=== PATIENT | male | born 1940 | race African-American/Black ===

== ENCOUNTER 2020-02-29 16:30 | Inpatient (IN) | payer MEDICARE ==
[~2020-02-29] VITALS: Ht 184.2 cm; Wt 69.9 kg
[~2020-02-29 16:30] MED LIST: CIPR-263 PO
[2020-02-29] MEDS ORDERED: ADENOSINE 3 MG/ML 2ML VIAL IV ONE ×2 (17:00)
[2020-02-29] MEDS ORDERED: DILTIAZEM HCL 5MG/ML 5ML VIAL IV ONE (17:30)
[2020-02-29] MEDS ORDERED: AMIODARONE HCL 900 MG in DEXT 5% WATER 482 ML IV STA (17:43)
[2020-02-29 17:51] LABS: BASOPHILS % 0.1 % (0.0-2.0); HEMATOCRIT. 54.6 % (42.0-52.0); HEMOGLOBIN. 17.9 g/dL (14.0-18.0); LYMPHOCYTES % 12.4 % (20.0-50.0); MEAN CORPUSCULAR HEMOGLOBIN 27.7 pg (28.0-32.0); MEAN CORPUSCULAR VOLUME 84.7 fL (80.0-94.0); MONOCYTES % 8.2 % (2.0-8.0); NEUTROPHILS % 79.3 % (40.0-76.0); PLATELET 122 x1000/uL (130-400); RED BLOOD CELL COUNT 6.45 mill/uL (4.7-6.1); RED CELL DISTRIBUTION WIDTH 14.5 % (11.6-14.6)
[2020-02-29 17:59] LABS: CHLORIDE 99 mEq/L (98-107)
[2020-02-29] MEDS ORDERED: SODIUM CHLORIDE 0.9% 500 ML IV ONE (19:15)
[2020-02-29] MEDS ORDERED: MORPHINE SULFATE 2 MG/ML CPJ (NOT FOR IM USE) IV PRN (22:15)
[2020-02-29] MEDS ORDERED: HYDROCODONE/ACETAMINOPHEN 5/325MG TABLET PO PRN (23:45)
[2020-03-01] VITALS (13 sets, daily range): BP systolic 117–144; BP diastolic 72–91
[2020-03-01] MEDS ORDERED: IOHEXOL-300 100 ML BOTTLE ONE (01:41)
[2020-03-01 09:58] LABS: T4 FREE 1.29 ng/dL (0.76-1.46)
[2020-03-01] MEDS ORDERED: POTASSIUM CHLORIDE INJ 40 MEQ in DEXT 5% WATER 250 ML IV ONE (11:00)
[2020-03-01] MEDS ORDERED: DEXT 5%/0.9% NACL 1,000 ML IV SCH (11:00)
[2020-03-01] MEDS ORDERED: PANTOPRAZOLE SODIUM 40 MG/VIAL IV NR (11:00)
[2020-03-01 11:28] LABS: BG BASE EXCESS -2.2 mmol/L (-2.0-2.0); BG CARBOXYHEMOGLOBIN 0.4 % (0.5-1.5); BG DEOXYHEMOGLOBIN 0.6 % (0.0-5.0); BG FRACTION INSPIRED OXYGEN 40; BG HCO3 ACT 21.9 mmol/L (22.0-26.0); BG METHEMOGLOBIN 0.6 % (0.0-1.5); BG OXYGEN SATURATION 99.4 % (92.0-98.5); BG OXYHEMOGLOBIN 98.4 % (94.0-97.0); BG PCO2 36.3 mmHg (35.0-45.0); BG PH 7.399 (7.350-7.450); BG PO2 187.2 mmHg (75.0-100.0); BG SAMPLE SITE RIGHT RADIAL; BG TOTAL HEMOGLOBIN 18.5 g/dL (12.0-18.0); BG VENT MODE NASAL CANNULA
[2020-03-01] MEDS ORDERED: MIDAZOLAM HCL 2 MG/2 ML VIAL ONE (11:35)
[2020-03-01] MEDS ORDERED: FENTANYL CITRATE/PF 50MCG/ML 2ML VIAL ONE (11:35)
[2020-03-01] MEDS ORDERED: PROPOFOL 200MG/20ML VIAL IV ONE (11:36)
[2020-03-01] MEDS ORDERED: SUCCINYLCHOLINE CHLORIDE 200MG/10ML IV ONE (11:39)
[2020-03-01] MEDS ORDERED: ROCURONIUM BROMIDE 10MG/ML VIAL 5ML IV ONE (11:40)
[2020-03-01] MEDS ORDERED: LIDOCAINE HCL/PF 1% 10 MG/ML 5ML VIAL ONE (11:43)
[2020-03-01] MEDS ORDERED: BUPIVACAINE HCL 0.5% (5MG/ML) 50ML ONE (11:45)
[2020-03-01] MEDS ORDERED: BACITRACIN 50,000 UNITS/VIAL ONE (11:45)
[2020-03-01] MEDS ORDERED: METHYLENE BLUE 50 MG/10 ML AMP IV ONE (11:45)
[2020-03-01] MEDS ORDERED: PHENYLEPHRINE HCL 10 MG/ML 1ML (IV VIAL) IV ONE (11:46)
[2020-03-01] MEDS ORDERED: ALBUMIN HUMAN 12.5G/250ML (5%) IV ONE (11:51)
[2020-03-01] MEDS ORDERED: PIPERACILLIN/TAZOBACTAM 2.25 G in DEXTROSE 5% WATER 50 ML IV SCH (12:00)
[2020-03-01] MEDS ORDERED: VANCOMYCIN 1 G PREMIX 200 ML IV SCH (12:00)
[2020-03-01] MEDS ORDERED: ONDANSETRON HCL 4MG/2ML INJ ONE (13:03)
[2020-03-01] MEDS ORDERED: ONDANSETRON HCL 4MG/2ML INJ IV PRN (13:15)
[2020-03-01] MEDS ORDERED: HYDRALAZINE 20MG/ML VIAL ONE (13:21)
[2020-03-01] MEDS ORDERED: ESMOLOL HCL 10MG/ML 10ML VIAL IV ONE (13:59)
[2020-03-01] MEDS ORDERED: FLUMAZENIL 0.1 MG/ML 5ML VIAL IV ONE (14:07)
[2020-03-01] MEDS ORDERED: GLYCOPYRROLATE 0.2 MG/ML 2ML VIAL ONE ×2 (14:08→14:12)
[2020-03-01] MEDS ORDERED: NEOSTIGMINE METHYLSULFATE 1MG/ML 10 ML VIAL ONE (14:09)
[2020-03-01] MEDS ORDERED: HEPARIN 1000 UNITS/ML 10ML ONE (14:12)
[2020-03-01] MEDS ORDERED: LABETALOL HCL 5MG/ML VIAL 20ML IV ONE (14:21)
[2020-03-01] MEDS ORDERED: ACETAMINOPHEN 650MG SUPP PR PRN (15:00)
[2020-03-01] MEDS ORDERED: HYDRALAZINE 20MG/ML VIAL IV PRN (15:00)
[2020-03-01] MEDS ORDERED: IPRATROPIUM/ALBUTEROL 0.5-3(2.5)MG/3ML NEB HHN PRN (15:00)
[2020-03-01 17:03] LABS: CHLORIDE 107 mEq/L (98-107)
[2020-03-01 17:05] LABS: INR 1.7; PROTHROMBIN TIME 17.6 sec (9.6-11.0)
[2020-03-01 17:07] LABS: HEMATOCRIT. 51.2 % (42.0-52.0); HEMOGLOBIN. 16.7 g/dL (14.0-18.0); MEAN CORPUSCULAR HEMOGLOBIN 27.6 pg (28.0-32.0); MEAN CORPUSCULAR VOLUME 84.6 fL (80.0-94.0); MEAN PLATELET VOLUME 9.3 fl (7.4-10.4); PLATELET 90 x1000/uL (130-400); RED BLOOD CELL COUNT 6.06 mill/uL (4.7-6.1); RED CELL DISTRIBUTION WIDTH 14.4 % (11.6-14.6)
[2020-03-01 17:15] LABS: CREATINE KINASE MB FRACTION 3.9 ng/mL (0.5-3.6)
[2020-03-01] MEDS: MORPHINE SULFATE 2 MG/ML CPJ (NOT FOR IM USE) IV PRN (17:18)
[2020-03-01] MEDS: DEXT 5%/0.45% NACL KCL 20MEQ/L 1,000 ML IV SCH (17:18)
[2020-03-01 18:04] LABS: PLATELET ESTIMATE DECREASED
[2020-03-01] MEDS: MORPHINE SULFATE 4 MG/ML CPJ (NOT FOR IM USE) IV PRN (20:39)
[2020-03-01 23:31] LABS: CREATINE KINASE MB FRACTION 3.7 ng/mL (0.5-3.6)
[2020-03-02] VITALS (17 sets, daily range): BP systolic 104–155; BP diastolic 39–91
[2020-03-02 02:12] LABS: CLARITY URINE CLEAR (CLEAR); COLOR URINE YELLOW (YELLOW); KETONES URINE NEGATIVE (NEGATIVE); LEUKOCYTE ESTERASE URINE NEGATIVE (NEGATIVE); NITRITE URINE NEGATIVE (NEGATIVE); OCCULT BLOOD URINE 2+ (NEGATIVE); PH URINE 5.5 (4.5-8.0); PROTEIN URINE TRACE (NEGATIVE); SPECIFIC GRAVITY URINE 1.033 (1.005-1.030); UROBILINOGEN URINE 0.2 E.U./dL (0.2-1.0)
[2020-03-02] MEDS: DEXT 5%/0.45% NACL KCL 20MEQ/L 1,000 ML IV SCH ×2 (02:19→10:00)
[2020-03-02] MEDS: MORPHINE SULFATE 4 MG/ML CPJ (NOT FOR IM USE) IV PRN (02:27)
[2020-03-02] MEDS ORDERED: PIPERACILLIN/TAZOBACTAM 2.25 G in DEXTROSE 5% WATER 50 ML IV SCH (03:00)
[2020-03-02 05:59] LABS: HEMATOCRIT. 47.9 % (42.0-52.0); HEMOGLOBIN. 15.6 g/dL (14.0-18.0); MEAN CORPUSCULAR HEMOGLOBIN 27.6 pg (28.0-32.0); MEAN PLATELET VOLUME 9.4 fl (7.4-10.4); PLATELET 89 x1000/uL (130-400); RED BLOOD CELL COUNT 5.64 mill/uL (4.7-6.1); RED CELL DISTRIBUTION WIDTH 14.7 % (11.6-14.6)
[2020-03-02 06:06] LABS: CHLORIDE 108 mEq/L (98-107)
[2020-03-02 06:18] LABS: CREATINE KINASE 340 IU/L (39-308)
[2020-03-02 06:21] LABS: CREATINE KINASE MB FRACTION 2.5 ng/mL (0.5-3.6)
[2020-03-02] MEDS: FAMOTIDINE 20MG/2ML VIAL IV SCH (09:28)
[2020-03-02] MEDS: PIPERACILLIN/TAZOBACTAM 3.375 G in DEXT 5% WATER 100 ML IV SCH ×3 (11:26→21:29)
[2020-03-02] MEDS ORDERED: VANCOMYCIN 750 MG PREMIX 150 ML IV SCH (12:00)
[2020-03-02 12:48] LABS: PLATELET ESTIMATE DECREASED
[2020-03-02] MEDS: SODIUM CHLORIDE 0.9% 1,000 ML IV SCH (13:16)
[2020-03-02] MEDS: VANCOMYCIN 750 MG PREMIX 150 ML IV SCH ×2 (13:17→23:43)
[2020-03-03] VITALS: BP 139/91
[2020-03-03] MEDS: SODIUM CHLORIDE 0.9% 1,000 ML IV SCH ×2 (02:27→16:36)
[2020-03-03] MEDS: PIPERACILLIN/TAZOBACTAM 3.375 G in DEXT 5% WATER 100 ML IV SCH ×4 (02:32→21:24)
[2020-03-03] MEDS: MORPHINE SULFATE 4 MG/ML CPJ (NOT FOR IM USE) IV PRN (02:39)
[2020-03-03 04:00] VITALS: BP 125/83
[2020-03-03 07:46] LABS: BASOPHILS % 0.1 % (0.0-2.0); HEMATOCRIT. 41.5 % (42.0-52.0); HEMOGLOBIN. 13.6 g/dL (14.0-18.0); LYMPHOCYTES % 9.8 % (20.0-50.0); MEAN CORPUSCULAR HEMOGLOBIN 27.8 pg (28.0-32.0); MEAN CORPUSCULAR VOLUME 84.9 fL (80.0-94.0); MEAN PLATELET VOLUME 9.6 fl (7.4-10.4); MONOCYTES % 6.4 % (2.0-8.0); NEUTROPHILS % 83.7 % (40.0-76.0); PLATELET 102 x1000/uL (130-400); RED BLOOD CELL COUNT 4.88 mill/uL (4.7-6.1); RED CELL DISTRIBUTION WIDTH 14.4 % (11.6-14.6)
[2020-03-03 08:00] VITALS: BP 140/94
[2020-03-03 08:34] LABS: CHLORIDE 109 mEq/L (98-107)
[2020-03-03] MEDS: FAMOTIDINE 20MG/2ML VIAL IV SCH (08:59)
[2020-03-03 11:54] VITALS: BP 123/80
[2020-03-03] MEDS: VANCOMYCIN 1 G PREMIX 200 ML IV SCH (13:11)
[2020-03-03 16:00] VITALS: BP 123/88
[2020-03-03 20:00] VITALS: BP 131/89
[2020-03-04] VITALS: BP 132/84
[2020-03-04] MEDS: VANCOMYCIN 1 G PREMIX 200 ML IV SCH ×2 (00:19→12:08)
[2020-03-04] MEDS: PIPERACILLIN/TAZOBACTAM 3.375 G in DEXT 5% WATER 100 ML IV SCH ×4 (03:29→21:43)
[2020-03-04 04:00] VITALS: BP 131/80
[2020-03-04] MEDS: SODIUM CHLORIDE 0.9% 1,000 ML IV SCH (06:15)
[2020-03-04 08:00] VITALS: BP 98/60
[2020-03-04] MEDS: FAMOTIDINE 20MG/2ML VIAL IV SCH (08:39)
[2020-03-04] MEDS: MORPHINE SULFATE 2 MG/ML CPJ (NOT FOR IM USE) IV PRN (08:39)
[2020-03-04 12:00] VITALS: BP_SYST 104; BP_SYST 133; BP_DIAS 65; BP_DIAS 96
[2020-03-04] MEDS: DEXT 5%/0.45% NACL KCL 10MEQ/L 1,000 ML IV SCH ×2 (12:06→18:32)
[2020-03-04 16:00] VITALS: BP 133/96
[2020-03-04 20:00] VITALS: BP 138/93
[2020-03-05] VITALS: BP 136/90
[2020-03-05] MEDS: VANCOMYCIN 1 G PREMIX 200 ML IV SCH (01:54)
[2020-03-05] MEDS: MORPHINE SULFATE 4 MG/ML CPJ (NOT FOR IM USE) IV PRN (03:19)
[2020-03-05] MEDS: PIPERACILLIN/TAZOBACTAM 3.375 G in DEXT 5% WATER 100 ML IV SCH ×4 (03:19→21:42)
[2020-03-05] MEDS: DEXT 5%/0.45% NACL KCL 10MEQ/L 1,000 ML IV SCH ×3 (03:19→18:32)
[2020-03-05 04:00] VITALS: BP 149/91
[2020-03-05] MEDS: HYDROCODONE/ACETAMINOPHEN 5/325MG TABLET PO PRN ×2 (06:16→18:58)
[2020-03-05 06:23] LABS: CHLORIDE 106 mEq/L (98-107)
[2020-03-05 08:00] VITALS: BP 123/76
[2020-03-05] MEDS: FAMOTIDINE 20MG/2ML VIAL IV SCH (08:48)
[2020-03-05 12:00] VITALS: BP 156/95
[2020-03-05] MEDS ORDERED: POTASSIUM CHLORIDE 20MEQ TABLET SR PO NR (13:00)
[2020-03-05 16:00] VITALS: BP 143/81
[2020-03-05 20:00] VITALS: BP 140/99
[2020-03-06] MEDS: VANCOMYCIN 1 G PREMIX 200 ML IV SCH ×2 (01:09→21:14)
[2020-03-06] MEDS: PIPERACILLIN/TAZOBACTAM 3.375 G in DEXT 5% WATER 100 ML IV SCH ×2 (03:35→09:07)
[2020-03-06] MEDS: DEXT 5%/0.45% NACL KCL 10MEQ/L 1,000 ML IV SCH ×3 (03:36→19:04)
[2020-03-06] MEDS: HYDROCODONE/ACETAMINOPHEN 5/325MG TABLET PO PRN ×2 (03:53→10:23)
[2020-03-06 08:00] VITALS: BP 112/76
[2020-03-06] MEDS: FAMOTIDINE 20MG/2ML VIAL IV SCH (09:07)
[2020-03-06 12:00] VITALS: BP 100/66
[2020-03-06 15:15] LABS: BG BASE EXCESS 1.5 mmol/L (-2.0-2.0); BG CARBOXYHEMOGLOBIN 1.1 % (0.5-1.5); BG DEOXYHEMOGLOBIN 1.8 % (0.0-5.0); BG FRACTION INSPIRED OXYGEN 28; BG HCO3 ACT 23.7 mmol/L (22.0-26.0); BG METHEMOGLOBIN 0.2 % (0.0-1.5); BG OXYGEN SATURATION 98.2 % (92.0-98.5); BG OXYHEMOGLOBIN 96.9 % (94.0-97.0); BG PH 7.502 (7.350-7.450); BG PO2 94.9 mmHg (75.0-100.0); BG SAMPLE SITE RIGHT RADIAL; BG VENT MODE NASAL CANNULA
[2020-03-06] MEDS ORDERED: HYDRALAZINE 10 MG in SODIUM CHLORIDE 0.9% 50 ML IV PRN (15:45)
[2020-03-06 16:00] VITALS: BP 106/78
[2020-03-06 20:00] VITALS: BP 110/64
[2020-03-07] VITALS (12 sets, daily range): BP systolic 110–148; BP diastolic 63–99
[2020-03-07] MEDS ORDERED: DILTIAZEM HCL 5MG/ML 5ML VIAL IV SCH (01:00)
[2020-03-07] MEDS ORDERED: DILTIAZEM HCL 125 MG in DEXT 5% WATER 100 ML IV PRN (02:00)
[2020-03-07] MEDS ORDERED: DIGOXIN 500MCG/2ML AMP IV SCH (03:15)
[2020-03-07 06:12] LABS: BASOPHILS % 0.4 % (0.0-2.0); EOSINOPHILS % 2.7 % (0.0-5.0); HEMATOCRIT. 40.7 % (42.0-52.0); HEMOGLOBIN. 13.8 g/dL (14.0-18.0); LYMPHOCYTES % 23.2 % (20.0-50.0); MEAN CORPUSCULAR HEMOGLOBIN 28.3 pg (28.0-32.0); MEAN CORPUSCULAR VOLUME 83.4 fL (80.0-94.0); MEAN PLATELET VOLUME 8.3 fl (7.4-10.4); MONOCYTES % 12.1 % (2.0-8.0); NEUTROPHILS % 61.6 % (40.0-76.0); PLATELET 198 x1000/uL (130-400); RED BLOOD CELL COUNT 4.88 mill/uL (4.7-6.1); RED CELL DISTRIBUTION WIDTH 14.1 % (11.6-14.6)
[2020-03-07 06:31] LABS: CHLORIDE 106 mEq/L (98-107)
[2020-03-07] MEDS ORDERED: LIDOCAINE HCL 1% 20ML VIAL (Pyxis) INJ ONE (07:38)
[2020-03-07] MEDS ORDERED: ENOXAPARIN 40MG/0.4ML SYR SUBCUT SCH (09:00)
[2020-03-07 09:08] LABS: CREATINE KINASE MB FRACTION 2.7 ng/mL (0.5-3.6)
[2020-03-07] MEDS ORDERED: HYDRALAZINE 20MG/ML VIAL IV PRN (10:15)
[2020-03-07] MEDS: AMIODARONE HCL 900 MG in DEXT 5% WATER 482 ML IV SCH (11:26)
[2020-03-07] MEDS: FAMOTIDINE 20MG/2ML VIAL IV SCH (11:44)
[2020-03-07] MEDS: HYDROCODONE/ACETAMINOPHEN 5/325MG TABLET PO PRN (12:47)
[2020-03-07] MEDS ORDERED: ENOXAPARIN 80MG/0.8ML SYR SUBCUT SCH ×2 (14:30→23:00)
[2020-03-07] MEDS ORDERED: BISACODYL 10MG SUPP PR PRN (17:15)
[2020-03-07] MEDS ORDERED: LACTULOSE 20G/30ML UDC PO PRN (17:15)
[2020-03-07] MEDS: DEXT 5%/0.45% NACL KCL 10MEQ/L 1,000 ML IV SCH (18:36)
[2020-03-08] VITALS (19 sets, daily range): BP systolic 128–156; BP diastolic 58–114
[2020-03-08] MEDS: AMIODARONE HCL 900 MG in DEXT 5% WATER 482 ML IV SCH (03:23)
[2020-03-08 07:30] LABS: BASOPHILS % 0.4 % (0.0-2.0); EOSINOPHILS % 2.5 % (0.0-5.0); HEMATOCRIT. 40.2 % (42.0-52.0); HEMOGLOBIN. 13.5 g/dL (14.0-18.0); LYMPHOCYTES % 17.2 % (20.0-50.0); MEAN CORPUSCULAR HEMOGLOBIN 28.4 pg (28.0-32.0); MEAN CORPUSCULAR VOLUME 84.7 fL (80.0-94.0); MEAN PLATELET VOLUME 8.3 fl (7.4-10.4); MONOCYTES % 11.4 % (2.0-8.0); NEUTROPHILS % 68.5 % (40.0-76.0); PLATELET 230 x1000/uL (130-400); RED BLOOD CELL COUNT 4.74 mill/uL (4.7-6.1)
[2020-03-08 07:40] LABS: CHLORIDE 107 mEq/L (98-107)
[2020-03-08] MEDS: DEXT 5%/0.45% NACL KCL 10MEQ/L 1,000 ML IV SCH (08:37)
[2020-03-08] MEDS: FAMOTIDINE 20MG/2ML VIAL IV SCH (08:37)
[2020-03-08] MEDS: APIXABAN 5 MG TABLET PO SCH ×2 (12:58→17:40)
[2020-03-08] MEDS ORDERED: AMI2 PO (17:23)
[2020-03-08] MEDS ORDERED: HYDR-4001 MT (17:23)
[2020-03-08] MEDS ORDERED: APIX5TAB MT (17:23)
[2020-03-08] MEDS ORDERED: DOCU-138 MT (17:23)
[2020-03-08] MEDS ORDERED: FAMO-135 PO (17:23)
[2020-03-08] MEDS ORDERED: LACTULOSE 20G/30ML UDC PO PRN (17:30)
[2020-03-08] MEDS ORDERED: NA PHOS,M-B/NA PHOS,DI-BA ENEMA 118ML PR PRN (17:30)
[2020-03-08] MEDS: DOCUSATE SODIUM 100MG CAPSULE PO SCH (17:39)
[2020-03-08] MEDS: AMIODARONE HCL 200 MG TABLET PO SCH (21:32)
[2020-03-09] VITALS (13 sets, daily range): BP systolic 126–152; BP diastolic 80–121
[2020-03-09 06:24] LABS: HEMATOCRIT 39.5 % (42.0-52.0); HEMOGLOBIN 13.2 g/dL (14.0-18.0); MEAN CORPUSCULAR VOLUME 83.8 fL (80.0-94.0); PLATELET 247 x1000/uL (130-400); RED BLOOD CELL COUNT 4.71 mill/uL (4.7-6.1); RED CELL DISTRIBUTION WIDTH 14.3 % (11.6-14.6)
[2020-03-09 06:31] LABS: CHLORIDE 108 mEq/L (98-107)
[2020-03-09] MEDS: DOCUSATE SODIUM 100MG CAPSULE PO SCH ×2 (09:00→17:00)
[2020-03-09] MEDS: APIXABAN 5 MG TABLET PO SCH ×2 (09:45→18:09)
[2020-03-09] MEDS: AMIODARONE HCL 200 MG TABLET PO SCH ×2 (09:46→20:20)
[2020-03-09] MEDS: FAMOTIDINE 20MG/2ML VIAL IV SCH (09:46)
[2020-03-09] MEDS ORDERED: METOPROLOL TARTRATE 25MG TABLET PO NR (12:45)
[2020-03-09] MEDS ORDERED: METOPROLOL TARTRATE 25MG TABLET PO SCH ×2 (13:00→21:00)
[2020-03-09] MEDS ORDERED: IOHEXOL-350 100 ML BOTTLE ONE (13:18)
[2020-03-09] MEDS: LEVOFLOXACIN 500MG PREMIX 100 ML IV SCH (15:49)
[2020-03-09] MEDS: METOPROLOL TARTRATE 50MG TABLET PO SCH (20:21)
[2020-03-10] VITALS (10 sets, daily range): BP systolic 124–158; BP diastolic 67–111
[2020-03-10] MEDS: FAMOTIDINE 20MG/2ML VIAL IV SCH (11:03)
[2020-03-10] MEDS: APIXABAN 5 MG TABLET PO SCH ×2 (11:04→18:36)
[2020-03-10] MEDS: DOCUSATE SODIUM 100MG CAPSULE PO SCH ×2 (11:04→17:00)
[2020-03-10] MEDS: METOPROLOL TARTRATE 50MG TABLET PO SCH ×2 (11:04→20:49)
[2020-03-10] MEDS: AMIODARONE HCL 200 MG TABLET PO SCH ×2 (11:04→20:48)
[2020-03-10] MEDS ORDERED: MAGNESIUM 4 G PREMIX 100 ML IV NR (12:00)
[2020-03-10] MEDS: LEVOFLOXACIN 500MG PREMIX 100 ML IV SCH (15:26)
[2020-03-11] VITALS (11 sets, daily range): BP systolic 116–149; BP diastolic 76–94
[2020-03-11] MEDS: DOCUSATE SODIUM 100MG CAPSULE PO SCH ×2 (09:00→19:01)
[2020-03-11] MEDS: AMIODARONE HCL 200 MG TABLET PO SCH ×2 (09:07→21:17)
[2020-03-11] MEDS: METOPROLOL TARTRATE 50MG TABLET PO SCH ×2 (09:07→21:19)
[2020-03-11] MEDS: FAMOTIDINE 20MG/2ML VIAL IV SCH (09:07)
[2020-03-11] MEDS: APIXABAN 5 MG TABLET PO SCH ×2 (09:07→19:01)
[2020-03-11 11:45] LABS: BG BASE EXCESS -0.6 mmol/L (-2.0-2.0); BG CARBOXYHEMOGLOBIN 0.8 % (0.5-1.5); BG DEOXYHEMOGLOBIN 11.3 % (0.0-5.0); BG HCO3 ACT 22.8 mmol/L (22.0-26.0); BG METHEMOGLOBIN 0.3 % (0.0-1.5); BG OXYGEN SATURATION 88.6 % (92.0-98.5); BG OXYHEMOGLOBIN 87.6 % (94.0-97.0); BG PCO2 34.2 mmHg (35.0-45.0); BG PH 7.442 (7.350-7.450); BG PO2 50.6 mmHg (75.0-100.0); BG SAMPLE SITE RIGHT BRACHIAL; BG TOTAL HEMOGLOBIN 15.9 g/dL (12.0-18.0); BG VENT MODE ROOM AIR
[2020-03-11] MEDS: LEVOFLOXACIN 500MG PREMIX 100 ML IV SCH (14:47)
[2020-03-11] MEDS: ALPRAZOLAM 0.5 MG TABLET PO PRN (21:16)
[2020-03-12] VITALS (10 sets, daily range): BP systolic 114–141; BP diastolic 66–91
[2020-03-12 06:40] LABS: BASOPHILS % 0.8 % (0.0-2.0); EOSINOPHILS % 2.3 % (0.0-5.0); HEMATOCRIT. 40.3 % (42.0-52.0); HEMOGLOBIN. 13.2 g/dL (14.0-18.0); LYMPHOCYTES % 19.1 % (20.0-50.0); MEAN CORPUSCULAR VOLUME 85.4 fL (80.0-94.0); MEAN PLATELET VOLUME 8.4 fl (7.4-10.4); MONOCYTES % 8.1 % (2.0-8.0); NEUTROPHILS % 69.7 % (40.0-76.0); PLATELET 302 x1000/uL (130-400); RED BLOOD CELL COUNT 4.72 mill/uL (4.7-6.1); RED CELL DISTRIBUTION WIDTH 14.5 % (11.6-14.6)
[2020-03-12 06:58] LABS: CHLORIDE 107 mEq/L (98-107)
[2020-03-12] MEDS: FAMOTIDINE 20MG/2ML VIAL IV SCH (08:49)
[2020-03-12] MEDS: APIXABAN 5 MG TABLET PO SCH ×2 (08:50→17:11)
[2020-03-12] MEDS: METOPROLOL TARTRATE 50MG TABLET PO SCH ×2 (08:50→21:16)
[2020-03-12] MEDS: AMIODARONE HCL 200 MG TABLET PO SCH ×2 (08:50→21:15)
[2020-03-12] MEDS: DOCUSATE SODIUM 100MG CAPSULE PO SCH ×3 (08:50→17:11)
[2020-03-12] MEDS: LEVOFLOXACIN 500MG PREMIX 100 ML IV SCH (14:44)
[2020-03-12] MEDS ORDERED: ACETAMINOPHEN 325MG TABLET PO PRN (19:15)
[2020-03-12] MEDS: HYDROCODONE/ACETAMINOPHEN 5/325MG TABLET PO PRN (19:56)
[2020-03-12] MEDS: ALPRAZOLAM 0.5 MG TABLET PO PRN (21:15)
[2020-03-13] VITALS (12 sets, daily range): BP systolic 108–127; BP diastolic 65–81
[2020-03-13] MEDS: DOCUSATE SODIUM 100MG CAPSULE PO SCH ×2 (09:00→17:00)
[2020-03-13] MEDS: APIXABAN 5 MG TABLET PO SCH ×2 (09:50→17:50)
[2020-03-13] MEDS: FAMOTIDINE 20MG/2ML VIAL IV SCH (09:50)
[2020-03-13] MEDS: AMIODARONE HCL 200 MG TABLET PO SCH ×2 (09:50→21:26)
[2020-03-13] MEDS: HYDROCODONE/ACETAMINOPHEN 5/325MG TABLET PO PRN (14:32)
[2020-03-13] MEDS: LEVOFLOXACIN 500MG PREMIX 100 ML IV SCH (14:33)
[2020-03-13] MEDS: ALPRAZOLAM 0.5 MG TABLET PO PRN (21:25)
[2020-03-13] MEDS: METOPROLOL TARTRATE 25MG TABLET PO SCH (21:26)
[2020-03-14] VITALS (12 sets, daily range): BP systolic 115–128; BP diastolic 74–83
[2020-03-14] MEDS: DOCUSATE SODIUM 100MG CAPSULE PO SCH ×2 (08:48→16:38)
[2020-03-14] MEDS: METOPROLOL TARTRATE 25MG TABLET PO SCH ×2 (08:49→20:08)
[2020-03-14] MEDS: AMIODARONE HCL 200 MG TABLET PO SCH (09:15)
[2020-03-14] MEDS: APIXABAN 5 MG TABLET PO SCH ×2 (09:15→17:48)
[2020-03-14] MEDS: FAMOTIDINE 20MG/2ML VIAL IV SCH (09:15)
[2020-03-15] VITALS (11 sets, daily range): BP systolic 100–142; BP diastolic 62–80
[2020-03-15] MEDS: DOCUSATE SODIUM 100MG CAPSULE PO SCH ×2 (09:22→17:00)
[2020-03-15] MEDS: FAMOTIDINE 20MG/2ML VIAL IV SCH (09:22)
[2020-03-15] MEDS: APIXABAN 5 MG TABLET PO SCH ×2 (09:22→18:20)
[2020-03-15] MEDS: METOPROLOL TARTRATE 25MG TABLET PO SCH ×2 (09:23→20:52)
[2020-03-15] MEDS: AMIODARONE HCL 200 MG TABLET PO SCH (09:24)
[2020-03-15] MEDS: ALPRAZOLAM 0.5 MG TABLET PO PRN (20:53)
[2020-03-16 08:00] VITALS: BP 119/74
[2020-03-16] MEDS: DOCUSATE SODIUM 100MG CAPSULE PO SCH ×2 (09:54→17:00)
[2020-03-16] MEDS: AMIODARONE HCL 200 MG TABLET PO SCH (09:54)
[2020-03-16] MEDS: FAMOTIDINE 20MG/2ML VIAL IV SCH (09:55)
[2020-03-16] MEDS: METOPROLOL TARTRATE 25MG TABLET PO SCH ×2 (09:55→20:40)
[2020-03-16] MEDS: APIXABAN 5 MG TABLET PO SCH ×2 (09:55→18:15)
[2020-03-16 10:00] VITALS: BP 113/77
[2020-03-16 12:00] VITALS: BP 106/75
[2020-03-16 16:00] VITALS: BP 102/61
[2020-03-16 20:00] VITALS: BP 110/71
[2020-03-17] VITALS: BP 105/65
[2020-03-17 04:00] VITALS: BP 105/66
[2020-03-17 08:00] VITALS: BP 100/61
[2020-03-17] MEDS ORDERED: ASCORBIC ACID 250 MG TABLET PO SCH (09:00)
[2020-03-17] MEDS ORDERED: ZINC SULFATE 220 MG ( 50 ) CAPSULE PO SCH (09:00)
[2020-03-17] MEDS: DOCUSATE SODIUM 100MG CAPSULE PO SCH ×2 (09:00→17:00)
[2020-03-17] MEDS: FAMOTIDINE 20MG/2ML VIAL IV SCH (09:19)
[2020-03-17] MEDS: METOPROLOL TARTRATE 25MG TABLET PO SCH ×2 (09:19→21:24)
[2020-03-17] MEDS: APIXABAN 5 MG TABLET PO SCH ×2 (09:19→17:07)
[2020-03-17] MEDS: AMIODARONE HCL 200 MG TABLET PO SCH (09:19)
[2020-03-17 20:00] VITALS: BP 102/69
[2020-03-17] MEDS: HYDROCODONE/ACETAMINOPHEN 5/325MG TABLET PO PRN (22:26)
[2020-03-18] VITALS: BP 110/69
[2020-03-18 04:00] VITALS: BP 116/68
[2020-03-18 08:00] VITALS: BP 113/72
[2020-03-18] MEDS: METOPROLOL TARTRATE 25MG TABLET PO SCH ×2 (09:00→21:29)
[2020-03-18] MEDS: DOCUSATE SODIUM 100MG CAPSULE PO SCH ×2 (09:00→17:00)
[2020-03-18] MEDS: AMIODARONE HCL 200 MG TABLET PO SCH (09:22)
[2020-03-18] MEDS: FAMOTIDINE 20MG/2ML VIAL IV SCH (09:22)
[2020-03-18] MEDS: APIXABAN 5 MG TABLET PO SCH ×2 (09:22→17:26)
[2020-03-18 12:00] VITALS: BP 112/69
[2020-03-18 16:00] VITALS: BP 106/67
[2020-03-18] MEDS ORDERED: AMIO100T4 PO (17:42)
[2020-03-18 20:00] VITALS: BP 114/67
[2020-03-18] MEDS: HYDROCODONE/ACETAMINOPHEN 5/325MG TABLET PO PRN (21:29)
[2020-03-19] VITALS: BP 118/74
[2020-03-19 04:00] VITALS: BP 114/71
[2020-03-19 08:00] VITALS: BP 112/70
[2020-03-19] MEDS: DOCUSATE SODIUM 100MG CAPSULE PO SCH ×2 (09:00→17:00)
[2020-03-19] MEDS: METOPROLOL TARTRATE 25MG TABLET PO SCH (09:00)
[2020-03-19] MEDS: APIXABAN 5 MG TABLET PO SCH ×2 (09:17→17:38)
[2020-03-19] MEDS: FAMOTIDINE 20MG/2ML VIAL IV SCH (09:17)
[2020-03-19] MEDS: AMIODARONE HCL 200 MG TABLET PO SCH (09:17)
[2020-03-19 12:00] VITALS: BP 110/71
[2020-03-19 16:00] VITALS: BP 147/94
[2020-03-19 20:00] VITALS: BP 141/84
[2020-03-20] VITALS: BP 137/81
[2020-03-20 04:00] VITALS: BP 131/84
[2020-03-20 07:14] LABS: CHLORIDE 103 mEq/L (98-107)
[2020-03-20 08:00] VITALS: BP 147/92
[2020-03-20] MEDS: APIXABAN 5 MG TABLET PO SCH ×2 (08:50→16:25)
[2020-03-20] MEDS: FAMOTIDINE 20MG/2ML VIAL IV SCH (08:51)
[2020-03-20] MEDS: METOPROLOL TARTRATE 25MG TABLET PO SCH (08:51)
[2020-03-20] MEDS: AMIODARONE HCL 200 MG TABLET PO SCH (08:51)
[2020-03-20] MEDS: DOCUSATE SODIUM 100MG CAPSULE PO SCH ×2 (08:52→16:25)
[2020-03-20 09:08] LABS: BASOPHILS % 1.5 % (0.0-2.0); HEMATOCRIT. 41.2 % (42.0-52.0); HEMOGLOBIN. 13.6 g/dL (14.0-18.0); LYMPHOCYTES % 40.8 % (20.0-50.0); MEAN CORPUSCULAR HEMOGLOBIN 27.7 pg (28.0-32.0); MEAN CORPUSCULAR VOLUME 84.1 fL (80.0-94.0); MEAN PLATELET VOLUME 8.8 fl (7.4-10.4); MONOCYTES % 9.8 % (2.0-8.0); NEUTROPHILS % 43.9 % (40.0-76.0); PLATELET 275 x1000/uL (130-400); RED CELL DISTRIBUTION WIDTH 14.5 % (11.6-14.6)
[2020-03-20 12:00] VITALS: BP 150/85
[2020-03-20 16:00] VITALS: BP 130/77
[2020-03-20 20:00] VITALS: BP 153/95
[2020-03-21] VITALS: BP 139/90
[2020-03-21] MEDS: HYDROCODONE/ACETAMINOPHEN 5/325MG TABLET PO PRN (00:50)
[2020-03-21 04:00] VITALS: BP 137/83
[2020-03-21 08:00] VITALS: BP 142/92
[2020-03-21] MEDS: FAMOTIDINE 20MG/2ML VIAL IV SCH (08:43)
[2020-03-21] MEDS: APIXABAN 5 MG TABLET PO SCH (08:43)
[2020-03-21] MEDS: METOPROLOL TARTRATE 25MG TABLET PO SCH (08:44)
[2020-03-21] MEDS: AMIODARONE HCL 200 MG TABLET PO SCH (08:44)
[2020-03-21] MEDS: DOCUSATE SODIUM 100MG CAPSULE PO SCH (08:44)
[2020-03-21 12:00] VITALS: BP 132/90
[2020-03-21 14:27] VITALS: BP 132/90
== END 2020-03-21 15:20 | disposition home or self-care (01) | DRG 326 ==
LOC: ER 16:30 → EDBEDREQSVC 17:48 → EDBEDREQ 17:48 → MICUSO 18:25 → EDBEDREQ 18:56 → EDBEDREQSVC 18:56 → CVICU 03-01 14:30 → 3WST 03-02 10:45 → 6EST 03-02 23:01 → 3WST 03-07 01:34 → 6EST 03-16 10:58
PROVIDERS: ADMIT Internal Medicine; ATTEND Internal Medicine
PROC: 0DU707Z Supplement Stomach, Pylorus with Autologous Tissue Substitute, Open Approach (ICD-10-PCS; principal; 2020-03-01)
PROC: 02HV33Z Insertion of Infusion Device into Superior Vena Cava, Percutaneous Approach (ICD-10-PCS; 2020-03-07)
PROC: B548ZZA Ultrasonography of Superior Vena Cava, Guidance (ICD-10-PCS; 2020-03-07)
DX: K27.5 Chronic or unspecified peptic ulcer, site unspecified, with perforation (principal); J18.9 Pneumonia, unspecified organism; K63.1 Perforation of intestine (nontraumatic); N17.0 Acute kidney failure with tubular necrosis; E87.1 Hypo-osmolality and hyponatremia; I77.4 Celiac artery compression syndrome; I48.92 Unspecified atrial flutter; I74.5 Embolism and thrombosis of iliac artery; J90 Pleural effusion, not elsewhere classified; J44.0 Chronic obstructive pulmonary disease with (acute) lower respiratory infection; I47.1 Supraventricular tachycardia; I48.91 Unspecified atrial fibrillation; E87.6 Hypokalemia; K57.90 Diverticulosis of intestine, part unspecified, without perforation or abscess without bleeding; I25.10 Atherosclerotic heart disease of native coronary artery without angina pectoris; J44.9 Chronic obstructive pulmonary disease, unspecified; Z93.3 Colostomy status; I71.2 Thoracic aortic aneurysm, without rupture; F17.200 Nicotine dependence, unspecified, uncomplicated; I11.9 Hypertensive heart disease without heart failure; E87.70 Fluid overload, unspecified; D69.6 Thrombocytopenia, unspecified; A05.9 Bacterial foodborne intoxication, unspecified; K59.00 Constipation, unspecified; Z79.01 Long term (current) use of anticoagulants; R73.9 Hyperglycemia, unspecified; R82.4 Acetonuria; Z20.822 Contact with and (suspected) exposure to COVID-19; R06.03 Acute respiratory distress
CPT/HCPCS: 36415; 36600; 71045; 71275; 74018; 74177; 76937; 80048; 80053; 80061; 80202; 81003; 82375; 82550; 82553; 82805; 82962; 83036; 83735; 83880; 84439; 84443; 84484; 85025; 85027; 85379; 86850; 86900; 87070; 87075; 87077; 87106; 87186; 87426; 93005; 93306; 93970; 94618; 96374; 97116; 97162; 97530; 99285; C1725; J0153; J0282; J0330; J0360; J1160; J1644; J1650; J1956; J2250; J2270; J2370; J2405; J2543; J2704; J2710; J3010; J3370; J3475; J3480; J3490; J7030; J7040; J7042; J7060; P9041; Q9967; Q9968; U0003